=== PATIENT | female | born 1965 | race Caucasian/White ===

== ENCOUNTER 2017-10-24 03:21 | Emergency (ER) | payer MEDICAID, OTHER, SELFPAY ==
[~2017-10-24] VITALS: Ht 172.7 cm; Wt 67.0 kg
[2017-10-24] MEDS ORDERED: KETOROLAC 30 MG/1 ML ONE (03:47)
[2017-10-24] MEDS ORDERED: METHOCARBAMOL 750 MG TABLET ONE (03:47)
[2017-10-24] MEDS ORDERED: SODIUM CHLORIDE FLUSH 10ML SYR IVF ONE (04:00)
[2017-10-24] MEDS ORDERED: METHOCARBAMOL 750 MG TABLET PO ONE (04:00)
[2017-10-24] MEDS ORDERED: KETOROLAC 30 MG/1 ML IVPush ONE (04:00)
[2017-10-24 04:03] LABS: MICROSCOPIC INDICATED
[2017-10-24 04:19] LABS: ALANINE AMINOTRANSFERASE 50 U/L (12-78); ALBUMIN 3.6 g/dL (3.4-5.0); ANION GAP 7 mmol/L (5-15); CALCIUM 8.7 mg/dL (8.5-10.1); CHLORIDE 104 mmol/L (98-107); CREATININE 0.66 mg/dL (0.55-1.02)
[2017-10-24 04:21] LABS: ALKALINE PHOSPHATASE 208 U/L (45-117); BASOPHILS # (AUTO) 0.01 x10^3/uL (0-0.1); BASOPHILS % (AUTO) 0 % (0-1); BILIRUBIN,TOTAL 0.6 mg/dL (0.2-1.0); EOSINOPHILS # (AUTO) 0.02 x10^3/uL (0-0.4); EOSINOPHILS % (AUTO) 1 % (1-7); LYMPHOCYTES # (AUTO) 0.43 x10^3/uL (1-3.4); LYMPHOCYTES % (AUTO) 12 % (22-44); MD NO; MEAN CORPUSCULAR HEMOGLOBIN 35.3 pg (27.0-34.8); MEAN CORPUSCULAR HGB CONC 34.9 g/dL (32.4-35.8); MEAN CORPUSCULAR VOLUME 101.2 fL (80-100); MEAN PLATELET VOLUME 8.4 fL (7.4-10.4); MONOCYTES # (AUTO) 0.36 x10^3/uL (0.2-0.8); MONOCYTES % (AUTO) 10 % (2-9); NEUTROPHILS # (AUTO) 2.83 x10^3/uL (1.8-6.8); NEUTROPHILS % (AUTO) 78 % (42-75); PLATELET COUNT 110 x10^3/uL (130-400); RED BLOOD COUNT 4.16 x10^6/uL (3.82-5.3); TOTAL PROTEIN 7.7 g/dL (6.4-8.2)
[2017-10-24] MEDS ORDERED: ONDANSETRON ODT 4 MG ONE (04:35)
[2017-10-24] MEDS ORDERED: HYDROcodone/APAP 5/325 TABLET ONE (04:36)
[2017-10-24 04:38] LABS: CULTURE INDICATED? YES
[2017-10-24 04:56] VITALS: BP 167/89
[2017-10-24] MEDS ORDERED: ONDANSETRON ODT 4 MG PO ONE (05:00)
[2017-10-24] MEDS ORDERED: HYDROcodone/APAP 5/325 TABLET PO ONE (05:00)
== END 2017-10-24 04:59 | disposition home or self-care (01) ==
LOC: ED 04:45
DX: M62.830 Muscle spasm of back (principal); I10 Essential (primary) hypertension; J44.9 Chronic obstructive pulmonary disease, unspecified
CPT/HCPCS: 36415; 80053; 81001; 83690; 85025; 87086; 96374; 99284; J1885; Q0162

== ENCOUNTER 2017-12-02 19:23 | Emergency (ER) | payer MEDICAID ==
[~2017-12-02] VITALS: Ht 172.7 cm; Wt 67.3 kg
[2017-12-02 19:25] VITALS: BP 110/75
== END 2017-12-02 20:51 | disposition home or self-care (01) ==
LOC: ED 20:15
DX: S92.424A Nondisplaced fracture of distal phalanx of right great toe, initial encounter for closed fracture (principal); I10 Essential (primary) hypertension; J44.9 Chronic obstructive pulmonary disease, unspecified; W22.8XXA Striking against or struck by other objects, initial encounter; Y93.89 Activity, other specified; Y92.009 Unspecified place in unspecified non-institutional (private) residence as the place of occurrence of the external cause; Y99.8 Other external cause status
CPT/HCPCS: 99284

== ENCOUNTER 2018-04-12 00:49 | Emergency (ER) | payer MEDICAID ==
[~2018-04-12] VITALS: Ht 170.2 cm; Wt 64.0 kg
[~2018-04-12 00:49] MED LIST: FURO20TA3 PO; LOSA25TA6 PO; METO25TA91 PO
[2018-04-12] MEDS ORDERED: HYDROcodone/APAP 5/325 TABLET PO PRN (01:00)
[2018-04-12] MEDS ORDERED: KETOROLAC 30 MG/1 ML IM ONE (01:00)
[2018-04-12] MEDS ORDERED: KETOROLAC 30 MG/1 ML ONE (01:15)
[2018-04-12] MEDS ORDERED: HYDROcodone/APAP 5/325 TABLET ONE (01:16)
[2018-04-12 01:17] LABS: MEAN CORPUSCULAR HEMOGLOBIN 35.9 pg (27.0-34.8); MEAN CORPUSCULAR VOLUME 102.7 fL (80-100); MEAN PLATELET VOLUME 7.6 fL (7.4-10.4); PLATELET COUNT 121 x10^3/uL (130-400); RED BLOOD COUNT 3.71 x10^6/uL (3.82-5.3); RED CELL DISTRIBUTION WIDTH 14.6 % (9.6-15.2)
[2018-04-12] MEDS ORDERED: ACET650S21 PO (01:24)
[2018-04-12 01:28] LABS: ALANINE AMINOTRANSFERASE 44 U/L (12-78); ALBUMIN 3.7 g/dL (3.4-5.0); ANION GAP 10 mmol/L (5-15); CALCIUM 8.8 mg/dL (8.5-10.1); CHLORIDE 111 mmol/L (98-107); CREATININE 0.58 mg/dL (0.55-1.02)
[2018-04-12 01:30] LABS: ALKALINE PHOSPHATASE 149 U/L (45-117); BILIRUBIN,TOTAL 1.5 mg/dL (0.2-1.0); TOTAL PROTEIN 7.5 g/dL (6.4-8.2)
[2018-04-12 01:44] LABS: BASOPHILS # (AUTO) 0.02 x10^3/uL (0-0.1); BASOPHILS % (AUTO) 1 % (0-1); EOSINOPHILS # (AUTO) 0.05 x10^3/uL (0-0.4); EOSINOPHILS % (AUTO) 2 % (1-7); LYMPHOCYTES # (AUTO) 0.84 x10^3/uL (1-3.4); LYMPHOCYTES % (AUTO) 32 % (22-44); MD SCAN; MONOCYTES # (AUTO) 0.27 x10^3/uL (0.2-0.8); MONOCYTES % (AUTO) 10 % (2-9); NEUTROPHILS # (AUTO) 1.44 x10^3/uL (1.8-6.8); NEUTROPHILS % (AUTO) 55 % (42-75)
[2018-04-12 02:01] VITALS: BP 110/81
== END 2018-04-12 02:04 | disposition home or self-care (01) ==
LOC: ED 00:56
DX: S22.31XA Fracture of one rib, right side, initial encounter for closed fracture (principal); I10 Essential (primary) hypertension; J44.9 Chronic obstructive pulmonary disease, unspecified; Z90.710 Acquired absence of both cervix and uterus; Z85.41 Personal history of malignant neoplasm of cervix uteri; V10.4XXA Pedal cycle driver injured in collision with pedestrian or animal in traffic accident, initial encounter; Y93.89 Activity, other specified; Y92.89 Other specified places as the place of occurrence of the external cause; Y99.8 Other external cause status
CPT/HCPCS: 36415; 71046; 80053; 85025; 96372; 99284; J1885

== ENCOUNTER 2018-06-12 02:19 | Inpatient (IN) | payer MEDICAID ==
[~2018-06-12] VITALS: Ht 172.7 cm; Wt 69.8 kg
[~2018-06-12 02:19] MED LIST changes: +ACET650S21 PO; +LOSA25TA25 PO; -LOSA25TA6 PO
[2018-06-12] MEDS ORDERED: ONDANSETRON 2MG/ML, 2ML ONE (02:54)
[2018-06-12] MEDS ORDERED: MORPHINE SULFATE 4 MG/ML, 1ML ONE ×2 (02:55→04:24)
[2018-06-12 02:57] LABS: BASOPHILS # (AUTO) 0.05 x10^3/uL (0-0.1); BASOPHILS % (AUTO) 1 % (0-1); EOSINOPHILS # (AUTO) 0.01 x10^3/uL (0-0.4); EOSINOPHILS % (AUTO) 0 % (1-7); LYMPHOCYTES # (AUTO) 1.49 x10^3/uL (1-3.4); LYMPHOCYTES % (AUTO) 14 % (22-44); MD NO; MEAN CORPUSCULAR HEMOGLOBIN 34.9 pg (27.0-34.8); MEAN CORPUSCULAR HGB CONC 35.2 g/dL (32.4-35.8); MEAN CORPUSCULAR VOLUME 99.3 fL (80-100); MEAN PLATELET VOLUME 6.7 fL (7.4-10.4); MONOCYTES # (AUTO) 0.72 x10^3/uL (0.2-0.8); MONOCYTES % (AUTO) 7 % (2-9); NEUTROPHILS # (AUTO) 8.51 x10^3/uL (1.8-6.8); NEUTROPHILS % (AUTO) 79 % (42-75); PLATELET COUNT 252 x10^3/uL (130-400); RED BLOOD COUNT 4.35 x10^6/uL (3.82-5.3); RED CELL DISTRIBUTION WIDTH 14.8 % (9.6-15.2)
[2018-06-12] MEDS: MORPHINE SULFATE 4 MG/ML, 1ML IVPush PRN ×2 (02:59→04:30)
[2018-06-12] MEDS ORDERED: ONDANSETRON 2MG/ML, 2ML IVPush ONE (03:00)
--- NOTE | 2018-06-12 03:09 | NUR ---
PT PRESENTS TO ED C/O N/V. STATES "I THINK MY POTASSIUM IS TOO LOW AGAIN." C/O BILATERAL LOW BACK CRAMPING AND CP SINCE 1900 LAST PM. PT TACHYCARDIC AWARE. ACTIVELY VOMITING IN ROOM UNTIL GIVEN ZOFRAN IV. STATES INTSANT RELIEF FROM PAIN AFTER MORPHINE ADMIN.
[2018-06-12 03:10] LABS: ALANINE AMINOTRANSFERASE 66 U/L (12-78); ALBUMIN 4.8 g/dL (3.4-5.0); ANION GAP 21 mmol/L (5-15); CALCIUM 9.4 mg/dL (8.5-10.1); CHLORIDE 103 mmol/L (98-107); CREATININE 0.87 mg/dL (0.55-1.02)
[2018-06-12 03:12] LABS: ALKALINE PHOSPHATASE 166 U/L (45-117); BILIRUBIN,TOTAL 1.5 mg/dL (0.2-1.0)
[2018-06-12 03:21] LABS: GASTRIC OCCULT BLD POSITIVE (NEGATIVE); GASTRIC PH 2 (1-7)
[2018-06-12] MEDS ORDERED: OMNIPAQUE 350 MG/ML, 100ML BOTTLE ONE (03:41)
--- NOTE | 2018-06-12 04:03 | NUR ---
PT GIVEN ICE CHIPS PER REQUEST. NO OTHER IMMEDIATE NEEDS. AWAITING CT RESULTS.
[2018-06-12] MEDS ORDERED: PROMETHAZINE 25 MG/ML, 1ML ONE ×2 (04:27→12:23)
[2018-06-12] MEDS ORDERED: SODIUM CHLORIDE 0.9% 1,000ML IVBOLUS ONE (04:30)
[2018-06-12] MEDS ORDERED: PROMETHAZINE 25 MG/ML, 1ML IM ONE (04:30)
[2018-06-12] MEDS ORDERED: CEFTRIAXONE PMX 1GM/50ML 50 ML IV ONE (04:30)
[2018-06-12] MEDS ORDERED: CEFTRIAXONE PMX 1GM/50ML 50 ML ONE (04:34)
[2018-06-12 04:41] LABS: MICROSCOPIC AUTO
[2018-06-12 04:42] LABS: CULTURE INDICATED? YES
--- NOTE | 2018-06-12 04:50 | NUR ---
BLOOD CULTURES ACCOMPLISHED. THIS RN TO GIVE ABX PER JUL.
[2018-06-12 05:31] VITALS: BP 135/92
[2018-06-12] MEDS ORDERED: LABETALOL 5MG/ML, 20ML IVPush PRN (06:30)
[2018-06-12] MEDS ORDERED: ONDANSETRON 2MG/ML, 2ML IVPush PRN (06:30)
[2018-06-12] MEDS ORDERED: BISACODYL 10 MG SUPP PR PRN (06:30)
[2018-06-12] MEDS ORDERED: POLYETHYLENE GLYCOL 17 GM PACKET PO PRN (06:30)
[2018-06-12] MEDS ORDERED: hydrALAzine 20 MG/ML, 1ML IVPush PRN (06:30)
[2018-06-12] MEDS ORDERED: OXYcodone IR 5MG TABLET PO PRN (06:30)
[2018-06-12] MEDS ORDERED: ONDANSETRON ODT 4 MG PO PRN (06:30)
[2018-06-12] MEDS ORDERED: DOCUSATE 100 MG CAPSULE PO PRN (06:30)
[2018-06-12] MEDS ORDERED: PANTOPRAZOLE 80 MG in SODIUM CHLORIDE 0.9% 50 ML IV ONE (06:30)
[2018-06-12] MEDS: SODIUM CHLORIDE 0.9% 1,000 ML IV SCH ×2 (06:51→13:14)
[2018-06-12 07:24] VITALS: BP 153/94
[2018-06-12 07:43] LABS: FREE T4 (FREE THYROXINE) 1.24 ng/dL (0.76-1.46); THYROID STIMULATING HORMONE 1.64 mIU/L (0.358-3.740)
[2018-06-12 08:10] LABS: HEMOGLOBIN A1C 5.1 % (4.2-6.3)
[2018-06-12] MEDS: morphine SULFATE 10 MG/ML, 1ML IVPush PRN ×3 (08:28→21:42)
[2018-06-12] MEDS: PANTOPRAZOLE 80 MG in SODIUM CHLORIDE 0.9% 100 ML IV SCH ×2 (10:20→21:49)
[2018-06-12 11:39] LABS: INTERNATIONAL NORMALIZED RATIO 1.04 (0.93-1.1)
[2018-06-12] MEDS ORDERED: FENTANYL PF 100 MCG/2ML ONE ×2 (11:42→12:32)
[2018-06-12] MEDS ORDERED: SUCCINYLCHOLINE 20 MG/ML, 10ML ONE (11:48)
[2018-06-12] MEDS ORDERED: PROPOFOL 10 MG/ML, 20ML ONE (11:48)
[2018-06-12] MEDS ORDERED: LIDOCAINE 2% 100MG/5ML SYRINGE ONE (11:48)
[2018-06-12] MEDS ORDERED: ONDANSETRON ODT 8 MG PO PRN (12:00)
[2018-06-12] MEDS ORDERED: DIAZEPAM 5 MG/ML, 2ML IVPush PRN (12:00)
[2018-06-12] MEDS ORDERED: OXYcodone 5 MG/5 ML ORAL.SOL UDC PO PRN (12:00)
[2018-06-12] MEDS ORDERED: LABETALOL 5MG/ML, 20ML IV PRN (12:00)
[2018-06-12] MEDS ORDERED: MORPHINE SULFATE 4 MG/ML, 1ML IVPush PRN (12:00)
[2018-06-12] MEDS ORDERED: ONDANSETRON 2MG/ML, 2ML IV PRN (12:00)
[2018-06-12] MEDS ORDERED: FENTANYL PF 100 MCG/2ML IV PRN (12:00)
[2018-06-12] MEDS ORDERED: ALBUTEROL/IPRATROPIUM 2.5MG/0.5MG, 3 ML NPPB PRN (12:00)
[2018-06-12] MEDS ORDERED: PROMETHAZINE 25 MG/ML, 1ML IV PRN (13:00)
[2018-06-12] MEDS: SUCRALFATE 1 GM/10 ML UDC PO SCH ×3 (13:13→21:24)
[2018-06-12 13:23] VITALS: BP 128/84
[2018-06-12] MEDS: PROMETHAZINE 25 MG/ML, 1ML IM PRN ×2 (15:15→21:42)
[2018-06-12 19:36] VITALS: BP 125/75
[2018-06-13] MEDS ORDERED: MAGNESIUM SULFATE PMX 2GM/50ML 50 ML IV ONE
[2018-06-13 00:46] VITALS: BP 138/86
[2018-06-13] MEDS: PANTOPRAZOLE 40 MG IV IVPush SCH ×2 (01:07→12:05)
[2018-06-13 03:33] LABS: ALANINE AMINOTRANSFERASE 40 U/L (12-78); ALBUMIN 3.3 g/dL (3.4-5.0); ANION GAP 9 mmol/L (5-15); CALCIUM 8.1 mg/dL (8.5-10.1); CHLORIDE 110 mmol/L (98-107); CREATININE 0.68 mg/dL (0.55-1.02)
[2018-06-13 03:38] LABS: ALKALINE PHOSPHATASE 125 U/L (45-117); BILIRUBIN,TOTAL 1.3 mg/dL (0.2-1.0); CHOLESTEROL, TOTAL 170 mg/dL (140-239); HDL CHOL % 33 % (28-40); HDL CHOLESTEROL (DIRECT) 56 mg/dL (40-60); LDL CHOLESTEROL,CALCULATED 92 mg/dL (54-169); LDL/HDL RATIO 1.6 (0.5-3.0); TOTAL PROTEIN 6.4 g/dL (6.4-8.2); TRIGLYCERIDES 109 mg/dL (50-200); VLDL CHOLESTEROL 22 mg/dL (0-25)
[2018-06-13] MEDS ORDERED: CEFTRIAXONE PMX 1GM/50ML 50 ML IV SCH ×2 (04:00→07:00)
[2018-06-13] MEDS: PROMETHAZINE 25 MG/ML, 1ML IM PRN (05:58)
[2018-06-13] MEDS: morphine SULFATE 10 MG/ML, 1ML IVPush PRN (05:58)
[2018-06-13 07:10] VITALS: BP 131/82
[2018-06-13] MEDS: SUCRALFATE 1 GM/10 ML UDC PO SCH ×2 (07:58→12:05)
[2018-06-13 12:22] VITALS: BP 114/73
[2018-06-13] MEDS ORDERED: PANT40TA5 PO (15:30)
[2018-06-13] MEDS ORDERED: SUCR1ORA5 PO (15:30)
== END 2018-06-13 16:50 | disposition home or self-care (01) | DRG 871 ==
LOC: ED 03:46 → EDIP 04:36 → 4EST 05:36 → DCLOUNGE 06-13 16:39
PROVIDERS: ADMIT Internal Medicine; ATTEND Internal Medicine
PROC: 0DB78ZX Excision of Stomach, Pylorus, Via Natural or Artificial Opening Endoscopic, Diagnostic (ICD-10-PCS; 2018-06-12)
PROC: 0DB58ZX Excision of Esophagus, Via Natural or Artificial Opening Endoscopic, Diagnostic (ICD-10-PCS; principal; 2018-06-12 12:00)
DX: A41.9 Sepsis, unspecified organism (principal); K29.01 Acute gastritis with bleeding; K22.11 Ulcer of esophagus with bleeding; N10 Acute pyelonephritis; E86.0 Dehydration; F12.10 Cannabis abuse, uncomplicated; F17.210 Nicotine dependence, cigarettes, uncomplicated; G89.29 Other chronic pain; I10 Essential (primary) hypertension; J44.9 Chronic obstructive pulmonary disease, unspecified; K74.60 Unspecified cirrhosis of liver; Z83.3 Family history of diabetes mellitus; Z85.41 Personal history of malignant neoplasm of cervix uteri; Z90.710 Acquired absence of both cervix and uterus; Z71.6 Tobacco abuse counseling
CPT/HCPCS: 36415; 71045; 74177; 80053; 80061; 81001; 82103; 82140; 82271; 82728; 82784; 83036; 83516; 83540; 83550; 83605; 83690; 83735; 84439; 84443; 85014; 85018; 85025; 85610; 86706; 86708; 86803; 87040; 87086; 87340; 88305; 88312; 93005; 96361; 96372; 96374; 96375; 96376; 99291; G0378; J0696; J2405; J2550; J2704; J3010; Q0162; Q9967; C9113; J0330; J2270; J3475; J7030

== ENCOUNTER 2019-09-06 12:09 | Emergency (ER) | payer MEDICAID ==
[~2019-09-06] VITALS: Ht 170.2 cm; Wt 65.0 kg
[~2019-09-06 12:09] MED LIST changes: +PANT40TA5 PO; +SUCR1ORA5 PO
[2019-09-06] MEDS ORDERED: ASPIRIN 81 MG TABLET CHEW ONE (12:36)
[2019-09-06] MEDS ORDERED: MORPHINE SULFATE 4 MG/ML, 1ML ONE (12:36)
--- NOTE | 2019-09-06 12:50 | NUR ---
PIV PLACED. LABS DRAWN. MEDS ADMIN PER JUL. XRAY COMPLETE. PT RESTING COMFORTABLY ON GURNEY. SHILA.
[2019-09-06 12:52] VITALS: BP 112/88
[2019-09-06 12:59] LABS: BASOPHILS # (AUTO) 0.05 x10^3/uL (0-0.1); BASOPHILS % (AUTO) 1 % (0-1); EOSINOPHILS # (AUTO) 0.04 x10^3/uL (0-0.4); EOSINOPHILS % (AUTO) 1 % (1-7); LYMPHOCYTES # (AUTO) 1.67 x10^3/uL (1-3.4); LYMPHOCYTES % (AUTO) 21 % (22-44); MD NO; MEAN CORPUSCULAR HEMOGLOBIN 32.8 pg (27.0-34.8); MEAN CORPUSCULAR HGB CONC 33.4 g/dL (32.4-35.8); MEAN CORPUSCULAR VOLUME 98.2 fL (80-100); MEAN PLATELET VOLUME 6.7 fL (7.4-10.4); MONOCYTES # (AUTO) 0.86 x10^3/uL (0.2-0.8); MONOCYTES % (AUTO) 11 % (2-9); NEUTROPHILS # (AUTO) 5.22 x10^3/uL (1.8-6.8); NEUTROPHILS % (AUTO) 67 % (42-75); PLATELET COUNT 222 x10^3/uL (130-400); RED BLOOD COUNT 4.19 x10^6/uL (3.82-5.3); RED CELL DISTRIBUTION WIDTH 19.6 % (9.6-15.2)
[2019-09-06] MEDS ORDERED: MORPHINE SULFATE 4 MG/ML, 1ML IVPush PRN (13:00)
[2019-09-06] MEDS ORDERED: SODIUM CHLORIDE FLUSH 10ML SYR IVF ONE (13:00)
[2019-09-06] MEDS ORDERED: ASPIRIN 81 MG TABLET CHEW PO ONE (13:00)
[2019-09-06 13:05] LABS: ALANINE AMINOTRANSFERASE 92 U/L (12-78); ALBUMIN 4.1 g/dL (3.4-5.0); ANION GAP 11 mmol/L (5-15); CALCIUM 8.6 mg/dL (8.5-10.1); CHLORIDE 107 mmol/L (98-107); CREATININE 0.68 mg/dL (0.55-1.02)
[2019-09-06 13:09] LABS: ALKALINE PHOSPHATASE 314 U/L (45-117); BILIRUBIN,TOTAL 2.1 mg/dL (0.2-1.0); TOTAL PROTEIN 8.5 g/dL (6.4-8.2); TROPONIN I < 0.015 ng/mL (0.000-0.045)
--- NOTE | 2019-09-06 13:11 | NUR ---
ALL RESULTS ARE BACK AT THIS TIME. CHART UP FOR REHCECK. PT STATES PAIN IS BETTER.
--- NOTE | 2019-09-06 14:37 | NUR ---
LATE ENTRY FOR 1217: THIS TECH COMPLETED VITALS AND EKG IN TRIAGE.
== END 2019-09-06 13:52 | disposition home or self-care (01) ==
LOC: ED 12:58
DX: R07.89 Other chest pain (principal); R06.02 Shortness of breath; I10 Essential (primary) hypertension; J44.9 Chronic obstructive pulmonary disease, unspecified; F17.200 Nicotine dependence, unspecified, uncomplicated; Z90.710 Acquired absence of both cervix and uterus
CPT/HCPCS: 36415; 71045; 80053; 84484; 85025; 93005; 96374; 99285; J2270

== ENCOUNTER 2019-09-20 04:55 | Emergency (ER) | payer MEDICAID ==
[~2019-09-20] VITALS: Ht 170.2 cm; Wt 64.8 kg
[2019-09-20] MEDS ORDERED: MORPHINE SULFATE 4 MG/ML, 1ML IVPush PRN ×2 (05:30→08:00)
[2019-09-20] MEDS ORDERED: SODIUM CHLORIDE FLUSH 10ML SYR IVF ONE (05:30)
[2019-09-20] MEDS ORDERED: ONDANSETRON 2MG/ML, 2ML IVPush ONE (05:30)
[2019-09-20] MEDS ORDERED: KETOROLAC 30 MG/1 ML IVPush ONE (05:30)
[2019-09-20] MEDS ORDERED: KETOROLAC 30 MG/1 ML ONE (05:37)
[2019-09-20] MEDS ORDERED: ONDANSETRON 2MG/ML, 2ML ONE (05:37)
[2019-09-20] MEDS ORDERED: MORPHINE SULFATE 4 MG/ML, 1ML ONE ×2 (05:38→07:38)
[2019-09-20] MEDS ORDERED: ASPIRIN 81 MG TABLET CHEW ONE (05:45)
[2019-09-20 05:46] LABS: BASOPHILS # (AUTO) 0.11 x10^3/uL (0-0.1); BASOPHILS % (AUTO) 3 % (0-1); EOSINOPHILS # (AUTO) 0.12 x10^3/uL (0-0.4); EOSINOPHILS % (AUTO) 3 % (1-7); LYMPHOCYTES # (AUTO) 0.96 x10^3/uL (1-3.4); LYMPHOCYTES % (AUTO) 21 % (22-44); MD NO; MEAN CORPUSCULAR HEMOGLOBIN 32.8 pg (27.0-34.8); MEAN CORPUSCULAR HGB CONC 33.3 g/dL (32.4-35.8); MEAN CORPUSCULAR VOLUME 98.4 fL (80-100); MEAN PLATELET VOLUME 7.7 fL (7.4-10.4); MONOCYTES # (AUTO) 0.42 x10^3/uL (0.2-0.8); MONOCYTES % (AUTO) 9 % (2-9); NEUTROPHILS % (AUTO) 65 % (42-75); PLATELET COUNT 189 x10^3/uL (130-400); RED BLOOD COUNT 4.09 x10^6/uL (3.82-5.3); RED CELL DISTRIBUTION WIDTH 18.8 % (9.6-15.2)
--- NOTE | 2019-09-20 05:49 | NUR ---
Patient presents to ER c/o left side CP which radiates to her left side back. She has had this pain for three weeks. She was seen for it two weeks ago and was told it was a pulled muscle. Pain is now worse than before. Patient has a hx of HI aprox 20 years ago. Patient is nauseous; no vomiting. Patient is in NAD. Respirations even and unlabored.
[2019-09-20 05:52] LABS: ALBUMIN 3.9 g/dL (3.4-5.0); ANION GAP 6 mmol/L (5-15); CHLORIDE 106 mmol/L (98-107); CREATININE 0.64 mg/dL (0.55-1.02)
[2019-09-20 05:56] LABS: TROPONIN I < 0.015 ng/mL (0.000-0.045)
[2019-09-20 05:57] LABS: MICROSCOPIC NOT IND
[2019-09-20] MEDS ORDERED: ASPIRIN 81 MG TABLET CHEW PO ONE (06:00)
[2019-09-20 06:05] LABS: CULTURE INDICATED? NO
[2019-09-20] MEDS ORDERED: OMNIPAQUE 350 MG/ML, 75ML BOTTLE ONE (06:46)
--- NOTE | 2019-09-20 06:53 | NUR ---
Report given to APRIL Grimm.
[2019-09-20 07:42] VITALS: BP 156/104
--- NOTE | 2019-09-20 07:43 | NUR ---
PT GIVEN ADDITIONAL PAIN MEDICATION PER ERPROVIDER. PT TO DC WILL MONITOR POST ADMIN THEN PROCEED TO DC. PT TO TAKE TAXI HOME.
== END 2019-09-20 08:24 | disposition home or self-care (01) ==
LOC: ED 05:21
DX: S22.060A Wedge compression fracture of T7-T8 vertebra, initial encounter for closed fracture (principal); R07.89 Other chest pain; I77.810 Thoracic aortic ectasia; I10 Essential (primary) hypertension; J44.9 Chronic obstructive pulmonary disease, unspecified; R00.0 Tachycardia, unspecified; Z86.73 Personal history of transient ischemic attack (TIA), and cerebral infarction without residual deficits; X58.XXXA Exposure to other specified factors, initial encounter; Y93.89 Activity, other specified; Y92.89 Other specified places as the place of occurrence of the external cause; Y99.8 Other external cause status
CPT/HCPCS: 36415; 71045; 71275; 80048; 81003; 82040; 84484; 85025; 85379; 93005; 96374; 96375; 96376; 99285; J1885; J2270; J2405; Q9967

== ENCOUNTER 2019-09-23 00:59 | Emergency (ER) | payer MEDICAID ==
[~2019-09-23] VITALS: Ht 170.2 cm; Wt 60.0 kg
--- NOTE | 2019-09-23 01:45 | NUR ---
Patient presents to ER c/o back pain radiating to breast. Patient was seen here on Monday for same. Patient has been seen in the past also for the same and been given referral for neurosurgery; patient has not followed up. Patient takes Flexeril and Gabapentin. Patient states pain is continuing.
[2019-09-23] MEDS ORDERED: HYDROmorphone 2 MG/ML, 1ML ONE (01:51)
[2019-09-23] MEDS ORDERED: DIAZEPAM 5 MG TABLET ONE (01:51)
[2019-09-23] MEDS ORDERED: HYDROmorphone 1 MG/ML, 1ML INJ IM STA (01:55)
[2019-09-23] MEDS ORDERED: DIAZEPAM 5 MG TABLET PO ONE (02:00)
--- NOTE | 2019-09-23 02:03 | NUR ---
Patient is in obvious discomfort. Respirations even and unlabored.
[2019-09-23] MEDS ORDERED: HYDROmorphone 1 MG/ML, 1ML INJ IM ONE (02:30)
[2019-09-23] MEDS ORDERED: ONDANSETRON ODT 4 MG ONE (02:45)
--- NOTE | 2019-09-23 02:48 | NUR ---
Patient feeling slightly nauseous. Meds admin per mar.
[2019-09-23] MEDS ORDERED: ONDANSETRON ODT 4 MG PO ONE (03:00)
--- NOTE | 2019-09-23 03:01 | NUR ---
Discharge instructions given. All questions and concerns addressed. Patient ambulatory with a steady gait. Belongings with patient.
[2019-09-23 03:02] VITALS: BP 96/71
== END 2019-09-23 03:03 | disposition home or self-care (01) ==
LOC: ED 01:30
DX: S39.012A Strain of muscle, fascia and tendon of lower back, initial encounter (principal); J44.9 Chronic obstructive pulmonary disease, unspecified; I10 Essential (primary) hypertension; G89.29 Other chronic pain; X58.XXXA Exposure to other specified factors, initial encounter; Y93.89 Activity, other specified; Y92.89 Other specified places as the place of occurrence of the external cause; Y99.8 Other external cause status
CPT/HCPCS: 96372; 99284; J1170; Q0162

== ENCOUNTER 2019-10-16 16:21 | Inpatient (IN) | payer MEDICAID ==
[~2019-10-16] VITALS: Ht 172.7 cm; Wt 68.5 kg
[2019-10-16] MEDS ORDERED: SODIUM CHLORIDE FLUSH 10ML SYR IVF ONE (17:00)
[2019-10-16] MEDS ORDERED: PANTOPRAZOLE 40 MG IV IVPush ONE (17:00)
[2019-10-16] MEDS ORDERED: SODIUM CHLORIDE 0.9% 1,000ML IVBOLUS ONE (17:00)
[2019-10-16] MEDS ORDERED: ONDANSETRON 2MG/ML, 2ML IVPush ONE ×2 (17:00→21:00)
--- NOTE | 2019-10-16 17:08 | NUR ---
PT PLACED ON HEART MONITOR, BP CUFF, PULSE OX. ST ON MONITOR. IV PLACED, NS BOLUS INFUSING. 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 AT BS.
[2019-10-16 17:20] LABS: BASOPHILS % (AUTO) 0 % (0-1); EOSINOPHILS % (AUTO) 0 % (1-7); LYMPHOCYTES # (AUTO) 0.36 x10^3/uL (1-3.4); LYMPHOCYTES % (AUTO) 2 % (22-44); MD NO; MEAN CORPUSCULAR HEMOGLOBIN 32.2 pg (27.0-34.8); MEAN CORPUSCULAR HGB CONC 33.2 g/dL (32.4-35.8); MEAN PLATELET VOLUME 7.5 fL (7.4-10.4); MONOCYTES # (AUTO) 0.92 x10^3/uL (0.2-0.8); MONOCYTES % (AUTO) 6 % (2-9); NEUTROPHILS # (AUTO) 14.37 x10^3/uL (1.8-6.8); NEUTROPHILS % (AUTO) 92 % (42-75); PLATELET COUNT 193 x10^3/uL (130-400); RED BLOOD COUNT 4.29 x10^6/uL (3.82-5.3); RED CELL DISTRIBUTION WIDTH 18.4 % (9.6-15.2)
[2019-10-16] MEDS ORDERED: PANTOPRAZOLE 40 MG IV ONE (17:22)
[2019-10-16] MEDS ORDERED: ONDANSETRON 2MG/ML, 2ML ONE ×2 (17:22→20:47)
[2019-10-16 17:30] LABS: ALANINE AMINOTRANSFERASE 93 U/L (12-78); ALBUMIN 4.6 g/dL (3.4-5.0); ANION GAP 34 mmol/L (5-15); CALCIUM 8.8 mg/dL (8.5-10.1); CHLORIDE 89 mmol/L (98-107)
--- NOTE | 2019-10-16 17:31 | NUR ---
MEDS GIVEN PER ERP ORDER FOR N/V, ABD PAIN. VS IMPROVING. RA SAT 99%, NASAL CANNULA FROM TRIAGE REMOVED. PT INSTRUCTED ON POC, ALL QUESTIONS ANSWERED. CALL LIGHT WITHIN REACH.
[2019-10-16 17:33] LABS: ALKALINE PHOSPHATASE 347 U/L (45-117); BILIRUBIN,TOTAL 5.5 mg/dL (0.2-1.0); CREATININE 1.74 mg/dL (0.55-1.02); TOTAL PROTEIN 9.1 g/dL (6.4-8.2)
[2019-10-16] MEDS ORDERED: IBUP-1223 PO (18:00)
[2019-10-16] MEDS ORDERED: MORPHINE SULFATE 4 MG/ML, 1ML ONE (18:04)
[2019-10-16] MEDS: MORPHINE SULFATE 4 MG/ML, 1ML IVPush PRN ×2 (18:09→18:44)
--- NOTE | 2019-10-16 18:10 | NUR ---
ERP NOTIFIED OF PT R/O PAIN AND LAB RESULTS BACK. PT MEDICATED FOR 10/10 ABD PAIN. 2ND LITER NS BOLUS INFUSING. PT AND FAMILY UPDATED ON RESULTS AND POC INCLUDING ADMISSION AND ADD ON US. CALL LIGHT WITHIN REACH.
--- NOTE | 2019-10-16 18:46 | NUR ---
US COMPLETED AT BS. PT REPORTING 01/29 ABD PAIN, MINIMAL RELIEF WITH FIRST DOSE OF MORPHINE. 2ND DOSE GIVEN PER ERP ORDER. VS UPDATED IN COMPUTER.
--- NOTE | 2019-10-16 18:57 | NUR ---
REPORT TO IVAN CHEN, TRANSFER OF CARE AT THIS TIME.
[2019-10-16 20:02] LABS: PH, VENOUS 7.301 pH (7.320-7.420)
[2019-10-16 20:11] LABS: GAMMA GLUTAMYL TRANSPEPTIDASE 2405 U/L (5-55)
[2019-10-16] MEDS ORDERED: D5%-0.45% NACL 1,000 ML IV SCH (20:21)
[2019-10-16] MEDS ORDERED: LORazepam 2 MG/ML, 1ML IVPush STA (20:44)
[2019-10-16] MEDS ORDERED: LORazepam 2 MG/ML, 1ML ONE (20:47)
[2019-10-16 20:49] LABS: INTERNATIONAL NORMALIZED RATIO 1.2 (0.93-1.1); PROTHROMBIN TIME 12.7 Seconds (9.6-11.5)
--- NOTE | 2019-10-16 20:54 | NUR ---
PT RESTING ON [facility] WITH FAMILY AT . PT MEDICATED PER MAR AND UPDATED ON POC. CALL LIGHT WITHIN REACH, MONITORING IN PLACE.
[2019-10-16 20:55] LABS: ACETONE, SERUM Large (80mg/dL) (Negative)
[2019-10-16] MEDS: PANTOPRAZOLE 80 MG in SODIUM CHLORIDE 0.9% 100 ML IV SCH (22:30)
[2019-10-16] MEDS: SODIUM BICARBONATE 8.4% 100 MEQ in SODIUM CHLORIDE 0.45% 1,000 ML IV SCH (22:35)
[2019-10-16 22:38] VITALS: BP 153/102
[2019-10-16] MEDS ORDERED: GABAPENTIN PO (23:13)
[2019-10-16] MEDS ORDERED: CYCL-259 PO (23:13)
[2019-10-16] MEDS ORDERED: HYDR-3237 PO (23:13)
[2019-10-16] MEDS ORDERED: FEXO1TAB25 PO (23:29)
[2019-10-17 00:45] LABS: MICROSCOPIC INDICATED
[2019-10-17 01:12] VITALS: BP 134/91
[2019-10-17] MEDS: morphine SULFATE 10 MG/ML, 1ML IVPush PRN ×4 (01:31→20:04)
[2019-10-17] MEDS: PANTOPRAZOLE 80 MG in SODIUM CHLORIDE 0.9% 100 ML IV SCH (05:18)
[2019-10-17 05:50] LABS: ALBUMIN 3.6 g/dL (3.4-5.0); ANION GAP 14 mmol/L (5-15); CALCIUM 7.7 mg/dL (8.5-10.1); CHLORIDE 99 mmol/L (98-107); MEAN CORPUSCULAR HEMOGLOBIN 32.6 pg (27.0-34.8); MEAN CORPUSCULAR HGB CONC 33.6 g/dL (32.4-35.8); RED BLOOD COUNT 3.81 x10^6/uL (3.82-5.3)
[2019-10-17 05:54] LABS: ALANINE AMINOTRANSFERASE 66 U/L (12-78); ALKALINE PHOSPHATASE 260 U/L (45-117); BILIRUBIN,TOTAL 3.9 mg/dL (0.2-1.0); CREATININE 1.21 mg/dL (0.55-1.02)
[2019-10-17 06:14] LABS: MEAN PLATELET VOLUME 7.1 fL (7.4-10.4); PLATELET COUNT 127 x10^3/uL (130-400)
[2019-10-17 06:16] LABS: BASOPHILS % (AUTO) 0 % (0-1); EOSINOPHILS % (AUTO) 0 % (1-7); LYMPHOCYTES # (AUTO) 0.72 x10^3/uL (1-3.4); LYMPHOCYTES % (AUTO) 9 % (22-44); MD SCAN; MONOCYTES # (AUTO) 0.33 x10^3/uL (0.2-0.8); MONOCYTES % (AUTO) 4 % (2-9); NEUTROPHILS # (AUTO) 7.19 x10^3/uL (1.8-6.8); NEUTROPHILS % (AUTO) 87 % (42-75)
[2019-10-17] MEDS: ONDANSETRON 2MG/ML, 2ML IVPush PRN ×3 (06:48→23:04)
[2019-10-17] MEDS ORDERED: LORazepam 2 MG/ML, 1ML IV PRN ×5 (07:00)
[2019-10-17 07:10] VITALS: BP 115/86
[2019-10-17] MEDS: SODIUM BICARBONATE 8.4% 100 MEQ in SODIUM CHLORIDE 0.45% 1,000 ML IV SCH ×2 (08:04→23:00)
[2019-10-17] MEDS: MULTIVITAMINS/MINERALS TABLET PO SCH (08:04)
[2019-10-17] MEDS: OXYcodone IR 5MG TABLET PO PRN ×3 (12:06→23:03)
[2019-10-17 13:55] VITALS: BP 119/79
[2019-10-17] MEDS ORDERED: CEFTRIAXONE PMX 1GM/50ML 50 ML IV SCH (15:00)
[2019-10-17 19:42] VITALS: BP 123/81
[2019-10-18 01:40] VITALS: BP 113/79
[2019-10-18] MEDS: morphine SULFATE 10 MG/ML, 1ML IVPush PRN ×5 (01:48→19:57)
[2019-10-18 05:00] LABS: ANION GAP 11 mmol/L (5-15); CALCIUM 7.9 mg/dL (8.5-10.1); CHLORIDE 99 mmol/L (98-107)
[2019-10-18 05:04] LABS: ALANINE AMINOTRANSFERASE 54 U/L (12-78); ALKALINE PHOSPHATASE 206 U/L (45-117); BILIRUBIN,TOTAL 2.1 mg/dL (0.2-1.0); CREATININE 0.94 mg/dL (0.55-1.02); TOTAL PROTEIN 6.2 g/dL (6.4-8.2)
[2019-10-18] MEDS: ONDANSETRON 2MG/ML, 2ML IVPush PRN ×2 (05:29→14:14)
[2019-10-18 06:46] VITALS: BP 132/90
[2019-10-18] MEDS ORDERED: POTASSIUM CHLORIDE 40 MEQ in SODIUM CHLORIDE 0.9% 500 ML IV ONE (07:00)
[2019-10-18] MEDS: PANTOPRAZOLE 40 MG IV IVPush SCH (08:34)
[2019-10-18] MEDS: MULTIVITAMINS/MINERALS TABLET PO SCH (08:34)
[2019-10-18] MEDS: OXYcodone IR 5MG TABLET PO PRN ×2 (08:34→17:57)
[2019-10-18] MEDS ORDERED: THIAMINE 100 MG in DEXTROSE 5% 50 ML IVPB SCH (09:00)
[2019-10-18] MEDS: POTASSIUM CHLORIDE 30 MEQ in SODIUM CHLORIDE 0.9% 1,000 ML IV SCH ×2 (10:50→19:57)
[2019-10-18] MEDS: THIAMINE 100MG TABLET PO SCH (10:50)
[2019-10-18] MEDS: BISACODYL 10 MG SUPP PR PRN (11:02)
[2019-10-18 12:33] VITALS: BP 123/88
[2019-10-18 19:37] VITALS: BP 144/84
[2019-10-19] MEDS: morphine SULFATE 10 MG/ML, 1ML IVPush PRN ×6 (00:56→21:35)
[2019-10-19] MEDS: ONDANSETRON 2MG/ML, 2ML IVPush PRN ×4 (00:56→21:35)
[2019-10-19 01:16] VITALS: BP 138/86
[2019-10-19] MEDS: POTASSIUM CHLORIDE 30 MEQ in SODIUM CHLORIDE 0.9% 1,000 ML IV SCH ×3 (03:00→19:40)
[2019-10-19 04:55] LABS: ALANINE AMINOTRANSFERASE 56 U/L (12-78); ALBUMIN 2.9 g/dL (3.4-5.0); ANION GAP 13 mmol/L (5-15); CALCIUM 7.6 mg/dL (8.5-10.1); CHLORIDE 102 mmol/L (98-107)
[2019-10-19 04:57] LABS: ALKALINE PHOSPHATASE 231 U/L (45-117); BILIRUBIN,TOTAL 2.2 mg/dL (0.2-1.0); TOTAL PROTEIN 6.4 g/dL (6.4-8.2)
[2019-10-19 07:14] VITALS: BP 150/102
[2019-10-19] MEDS: OXYcodone IR 5MG TABLET PO PRN (07:32)
[2019-10-19] MEDS: BISACODYL 10 MG SUPP PR PRN (09:58)
[2019-10-19] MEDS: PANTOPRAZOLE 40 MG IV IVPush SCH (09:58)
[2019-10-19] MEDS: THIAMINE 100MG TABLET PO SCH (09:59)
[2019-10-19] MEDS: MULTIVITAMINS/MINERALS TABLET PO SCH (09:59)
[2019-10-19] MEDS: ENOXAPARIN 40 MG/0.4 ML SQ SCH (10:00)
[2019-10-19 13:36] VITALS: BP 139/98
[2019-10-19 19:41] VITALS: BP 150/90
[2019-10-20 00:50] VITALS: BP 152/101
[2019-10-20] MEDS: morphine SULFATE 10 MG/ML, 1ML IVPush PRN ×6 (00:52→20:58)
[2019-10-20] MEDS: POTASSIUM CHLORIDE 30 MEQ in SODIUM CHLORIDE 0.9% 1,000 ML IV SCH (01:46)
[2019-10-20] MEDS: ONDANSETRON 2MG/ML, 2ML IVPush PRN ×2 (05:38→16:24)
[2019-10-20 06:02] LABS: CHLORIDE 102 mmol/L (98-107)
[2019-10-20 06:13] LABS: ALANINE AMINOTRANSFERASE 65 U/L (12-78); ALBUMIN 3.5 g/dL (3.4-5.0); ALKALINE PHOSPHATASE 316 U/L (45-117); ANION GAP 9 mmol/L (5-15); BILIRUBIN,TOTAL 2.7 mg/dL (0.2-1.0); CALCIUM 8.3 mg/dL (8.5-10.1); CREATININE 0.56 mg/dL (0.55-1.02); TOTAL PROTEIN 7.3 g/dL (6.4-8.2)
[2019-10-20 06:56] VITALS: BP 164/102
[2019-10-20] MEDS: SODIUM CHLORIDE 0.9% 1,000 ML IV SCH ×3 (07:00→23:00)
[2019-10-20 07:37] LABS: CHOL/HDL RATIO 6.5; LDL/HDL RATIO 4.7 (0.5-3.0)
[2019-10-20] MEDS: PANTOPRAZOLE 40 MG IV IVPush SCH (07:52)
[2019-10-20] MEDS: THIAMINE 100MG TABLET PO SCH (07:52)
[2019-10-20] MEDS: POTASSIUM CHLORIDE 20 MEQ TAB.ER.PRT PO SCH ×2 (07:52→16:24)
[2019-10-20] MEDS: ENOXAPARIN 40 MG/0.4 ML SQ SCH (07:52)
[2019-10-20] MEDS: MULTIVITAMINS/MINERALS TABLET PO SCH (07:52)
[2019-10-20] MEDS ORDERED: MAGNESIUM SULFATE 3 GM in SODIUM CHLORIDE 0.9% 100 ML IV ONE (10:00)
[2019-10-20 12:11] VITALS: BP 156/107
[2019-10-20 19:20] VITALS: BP 147/96
[2019-10-20] MEDS ORDERED: ATORVASTATIN 20 MG TABLET PO SCH (21:00)
[2019-10-21 00:50] VITALS: BP 127/86
[2019-10-21] MEDS: morphine SULFATE 10 MG/ML, 1ML IVPush PRN ×2 (01:10→05:50)
[2019-10-21] MEDS: ONDANSETRON 2MG/ML, 2ML IVPush PRN ×2 (01:10→07:29)
[2019-10-21] MEDS ORDERED: ASPIRIN 81 MG TABLET EC PO SCH (06:00)
[2019-10-21] MEDS: SODIUM CHLORIDE 0.9% 1,000 ML IV SCH (06:16)
[2019-10-21 06:26] LABS: ALBUMIN 3.3 g/dL (3.4-5.0); ANION GAP 8 mmol/L (5-15); CALCIUM 8.3 mg/dL (8.5-10.1); CHLORIDE 106 mmol/L (98-107)
[2019-10-21 06:29] LABS: ALANINE AMINOTRANSFERASE 96 U/L (12-78); ALKALINE PHOSPHATASE 331 U/L (45-117); BILIRUBIN,TOTAL 2.7 mg/dL (0.2-1.0); CREATININE 0.61 mg/dL (0.55-1.02); TOTAL PROTEIN 7.5 g/dL (6.4-8.2)
[2019-10-21] MEDS ORDERED: PANTOPRAZOLE 40MG TABLET PO SCH (06:30)
[2019-10-21 06:58] VITALS: BP 157/104
[2019-10-21] MEDS: ENOXAPARIN 40 MG/0.4 ML SQ SCH (07:29)
[2019-10-21] MEDS: MULTIVITAMINS/MINERALS TABLET PO SCH (07:29)
[2019-10-21] MEDS: OXYcodone IR 5MG TABLET PO PRN ×2 (07:30→11:55)
[2019-10-21] MEDS: THIAMINE 100MG TABLET PO SCH (07:30)
[2019-10-21 13:09] VITALS: BP 145/94
== END 2019-10-21 14:50 | disposition home or self-care (01) | DRG 871 ==
LOC: ED 17:19 → EDIP 20:11 → 4WST 22:25 → DCLOUNGE 10-21 14:47
PROVIDERS: ADMIT Family Medicine; ATTEND Internal Medicine Infectious Disease
DX: A41.9 Sepsis, unspecified organism (principal); K85.20 Alcohol induced acute pancreatitis without necrosis or infection; D68.9 Coagulation defect, unspecified; F10.239 Alcohol dependence with withdrawal, unspecified; N39.0 Urinary tract infection, site not specified; E87.1 Hypo-osmolality and hyponatremia; N17.9 Acute kidney failure, unspecified; E87.6 Hypokalemia; F17.200 Nicotine dependence, unspecified, uncomplicated; I10 Essential (primary) hypertension; I25.10 Atherosclerotic heart disease of native coronary artery without angina pectoris; I25.2 Old myocardial infarction; J44.9 Chronic obstructive pulmonary disease, unspecified; K70.10 Alcoholic hepatitis without ascites; K70.30 Alcoholic cirrhosis of liver without ascites; K76.0 Fatty (change of) liver, not elsewhere classified; K82.8 Other specified diseases of gallbladder; Z85.41 Personal history of malignant neoplasm of cervix uteri; Z90.710 Acquired absence of both cervix and uterus; Y90.0 Blood alcohol level of less than 20 mg/100 ml
CPT/HCPCS: 36415; 74176; 74181; 76700; 80053; 80061; 80307; 81001; 82010; 82803; 82977; 83036; 83605; 83690; 83735; 85025; 85610; 85730; 86850; 86900; 87040; 87086; 93005; 96361; 96374; 96375; 96376; 99285; G0378; J0696; J1650; J2405; J3475; J3480; C9113; J2060; J2270; J7030; J7040

== ENCOUNTER 2020-02-02 18:22 | Emergency (ER) | payer MEDICAID ==
[~2020-02-02] VITALS: Ht 172.7 cm; Wt 61.8 kg
[~2020-02-02 18:22] MED LIST changes: +CYCL-259 PO; +FEXO1TAB25 PO; +GABAPENTIN PO; +HYDR-3237 PO; +IBUP-1223 PO; -PANT40TA5 PO; +PANT40TA6 PO
--- NOTE | 2020-02-02 18:28 | NUR ---
MICAELA RN: PT IN THE BATHROOM
--- NOTE | 2020-02-02 18:33 | NUR ---
NOT IN THE LOBBY
[2020-02-02] MEDS ORDERED: METOCLOPRAMIDE 5 MG/ML, 2ML IVPush ONE (19:30)
[2020-02-02] MEDS ORDERED: SODIUM CHLORIDE FLUSH 10ML SYR IVF ONE (19:30)
[2020-02-02] MEDS ORDERED: SODIUM CHLORIDE 0.9% 1,000ML IVBOLUS ONE (19:30)
[2020-02-02] MEDS ORDERED: PANTOPRAZOLE 40 MG IV IVPush ONE (19:30)
[2020-02-02 19:35] LABS: BASOPHILS # (AUTO) 0.02 x10^3/uL (0-0.1); BASOPHILS % (AUTO) 1 % (0-1); EOSINOPHILS % (AUTO) 0 % (1-7); LYMPHOCYTES # (AUTO) 0.92 x10^3/uL (1-3.4); LYMPHOCYTES % (AUTO) 21 % (22-44); MD NO; MEAN CORPUSCULAR HEMOGLOBIN 29.5 pg (27.0-34.8); MEAN CORPUSCULAR HGB CONC 32.6 g/dL (32.4-35.8); MEAN CORPUSCULAR VOLUME 90.4 fL (80-100); MEAN PLATELET VOLUME 7.6 fL (7.4-10.4); MONOCYTES # (AUTO) 0.22 x10^3/uL (0.2-0.8); MONOCYTES % (AUTO) 5 % (2-9); NEUTROPHILS % (AUTO) 74 % (42-75); PLATELET COUNT 114 x10^3/uL (130-400); RED BLOOD COUNT 3.95 x10^6/uL (3.82-5.3); RED CELL DISTRIBUTION WIDTH 20.8 % (9.6-15.2)
[2020-02-02] MEDS ORDERED: METOCLOPRAMIDE 5 MG/ML, 2ML ONE (19:36)
[2020-02-02] MEDS ORDERED: PANTOPRAZOLE 40 MG IV ONE (19:36)
[2020-02-02] MEDS ORDERED: MORPHINE SULFATE 4 MG/ML, 1ML ONE ×2 (19:36→20:43)
[2020-02-02] MEDS: MORPHINE SULFATE 4 MG/ML, 1ML IVPush PRN ×2 (19:41→20:43)
[2020-02-02 19:47] LABS: ALBUMIN 3.7 g/dL (3.4-5.0); ANION GAP 12 mmol/L (5-15); CALCIUM 8.2 mg/dL (8.5-10.1); CHLORIDE 111 mmol/L (98-107)
[2020-02-02 19:50] LABS: ALANINE AMINOTRANSFERASE 60 U/L (12-78); ALKALINE PHOSPHATASE 248 U/L (45-117); BILIRUBIN,TOTAL 1.4 mg/dL (0.2-1.0); CREATININE 0.89 mg/dL (0.55-1.02); TOTAL PROTEIN 7.5 g/dL (6.4-8.2)
--- NOTE | 2020-02-02 20:27 | NUR ---
MT: FRIEND (ODETTE) WOULD LIKE TO BE UPDATED - [phone]
[2020-02-02] MEDS ORDERED: NS + 20MEQ KCL 1,000 ML IV ONE ×2 (20:30→20:31)
--- NOTE | 2020-02-02 21:20 | NUR ---
assumed carer of pt. report from Juan M CHEN. pt here for abd pain after heavy ETOH consumption. pt resting in position of omfort with lights dimmed. fluids infusing. after fluids completed, pt to be D/C. pt updated on POC. no family at bedside
--- NOTE | 2020-02-02 22:00 | NUR ---
pt sleeping in position of comfort. no apparent distress
--- NOTE | 2020-02-02 22:35 | NUR ---
pt still sleeping. IV infusing
--- NOTE | 2020-02-02 23:10 | NUR ---
NS with K+ infusion completed
[2020-02-02 23:21] VITALS: BP 105/65
== END 2020-02-02 23:26 | disposition home or self-care (01) ==
LOC: ED 21:40
DX: K29.21 Alcoholic gastritis with bleeding (principal); R11.2 Nausea with vomiting, unspecified; R10.13 Epigastric pain; E87.6 Hypokalemia; R00.0 Tachycardia, unspecified; I10 Essential (primary) hypertension; J44.9 Chronic obstructive pulmonary disease, unspecified; Z90.710 Acquired absence of both cervix and uterus; Z85.41 Personal history of malignant neoplasm of cervix uteri
CPT/HCPCS: 36415; 80053; 83690; 85025; 93005; 96361; 96365; 96366; 96375; 96376; 99285; C9113; J2270; J2765; J3480; J7030